=== PATIENT | male | born 1960 ===

== ENCOUNTER 2023-09-15 12:21 | Outpatient (CLI) | payer OTHER | END 2023-09-15 23:59 | disposition home or self-care (01) | LOC: MRI 12:21 | PROVIDERS: ATTEND Family Medicine | DX: M75.101 Unspecified rotator cuff tear or rupture of right shoulder, not specified as traumatic (principal); M19.011 Primary osteoarthritis, right shoulder; M25.511 Pain in right shoulder | CPT/HCPCS: 73221 ==